=== PATIENT | male | born 1960 | race Asian ===

== ENCOUNTER 2017-04-30 07:05 | Emergency (ER) | payer OTHER ==
[~2017-04-30] VITALS: Ht 175.3 cm; Wt 85.0 kg
[2017-04-30 07:15] VITALS: Ht 175.3 cm; Wt 85.0 kg
[2017-04-30] MEDS ORDERED: ALBUTEROL 0.5% (NEB) 2.5 MG/0.5 ML AMP INH STA ×2 (07:32→09:23)
[2017-04-30] MEDS ORDERED: IPRATROPIUM (NEB) 0.5 MG/2.5 ML AMP NEB STA ×2 (07:32→09:23)
[2017-04-30] MEDS ORDERED: METHYLPREDNISOLONE 125 MG INJ IV ONE (08:00)
--- NOTE | 2017-04-30 08:16 | ERD ---
ER Documentation Chief Complaint Date/Time DATE: 04/30/17 TIME: 08:15 Chief Complaint SOB X 1 WEEK HPI 57-year-old male with history of asthma presents with intermittent shortness of breath for the past week, worsen after yesterday. He reports wheezing, and has been using albuterol, Dulera, Combivent and Spiriva. He is a long-term smoker and he states he quit a few years ago. He reports there is some chest tightness associated feels like his usual asthma symptoms. ROS All systems reviewed and are negative except as per history of present illness. Medications Home Meds Active Scripts Prednisone* (Prednisone*) 20 Mg Tab, 40 MG PO DAILY for 4 Days, TAB Prov:TONY BLACKWELL PA-C 04/30/17 Albuterol Sulfate* (Proair HFA*) 8.5 Gm Hfa.aer.ad, 2 PUFF INH Q4, #1 INHALER Prov:TONY BLACKWELL PA-C 04/30/17 Tiotropium [place]* (Spiriva*) 18 Mcg Cap.w.dev, 1 CAP INHALATION DAILY, #30 CAP Prov:TONY BLACKWELL PA-C 04/30/17 Mometasone-Formoterol (Dulera) 200-5 Mcg/Inh - 13 Gm Hfa.aer.ad, 4 PUFFS INHALATION BID, #1 INHALER Prov:TONY BLACKWELL PA-C 04/30/17 PMhx/Soc History of Surgery: Yes (left arm tumor removal) Hx Respiratory Disorders: Yes (asthma) Hx Alcohol Use: No Hx Substance Use: No Hx Tobacco Use: Yes Smoking Status: Former smoker Physical Exam Vitals Vital Signs Date Time Temp Pulse Resp B/P Pulse Ox O2 Delivery O2 Flow Rate FiO2 04/30/17 09:28 87 19 96 21 04/30/17 07:52 82 19 96 21 04/30/17 07:15 97.9 85 20 154/82 97 Physical Exam General: Well-developed, well-nourished. The patient appears in no acute distress. HEENT: Head is normocephalic, atraumatic. No scleral icterus. Oropharynx is clear Neck: Supple. Nontender. Lungs: Wheezing bilaterally, speaking in full sentences, nonlabored Heart: Regular rate and rhythm. S1 and S2 are normal. No murmurs, gallops, or rubs. Abdomen: Soft, nontender, nondistended. Bowel sounds are normoactive. Extremities: No clubbing or cyanosis. Normal pulses. Moving extremities x 4. No weakness. Neurologic: Alert and oriented 3. No focal deficits. Skin: Normal turgor. No rash or lesions. Results 24 hrs Current Medications Medications (Trade) Dose Ordered Sig/Dylan Route PRN Reason Start Time Stop Time Status Last Admin Dose Admin Ipratropium [place] (Atrovent 0.02% (Neb)) 0.5 mg ONCE STAT NEB 04/30/17 07:32 04/30/17 07:35 DC 04/30/17 07:50 Albuterol (Proventil 0.5% (Neb)) 10 mg ONCE STAT INH 04/30/17 07:32 04/30/17 07:35 DC 04/30/17 07:50 Methylprednisolone Sodium Succinate (Solu-Medrol) 125 mg ONCE ONCE IV 04/30/17 08:00 04/30/17 08:01 DC 04/30/17 08:01 Ipratropium [place] (Atrovent 0.02% (Neb)) 0.5 mg ONCE STAT NEB 04/30/17 09:23 04/30/17 09:25 DC 04/30/17 09:26 Albuterol (Proventil 0.5% (Neb)) 7.5 mg ONCE STAT INH 04/30/17 09:23 04/30/17 09:25 DC 04/30/17 09:26 Procedures/MDM ED course: 12-lead EKG(interpreted by supervising physician): Reviewed by Dr. Abdi Rate/Rhythm: Normal Sinus Rhythm, rate of 78 QRS, ST, T-waves: No changes consistent w/ acute ischemia, no intervals, no dysrhythmias, no ectopy Impression: No evidence of ischemia or arrhythmia Treatment: He was given albuterol 10 mg continuous breathing treatment with Atrovent 1 mg. He was given Solu-Medrol 125 mg IV. Re auscultation shows improved wheezing however persistent wheezing some on the left side greater than the right. He was given an additional albuterol 7.5 mg, Atrovent 0.5 mg continuous neb breathing treatment. Medical decision making: This 57-year-old male comes in with an asthma exacerbation, patient's symptoms are mild to moderate usually, and worse over the last week. He takes Spiriva, Dulera as well as Combivent and uses albuterol occasionally. He initially was seems with some respiratory distress and improved with a breathing treatment. He was given a second breathing treatment here given that he still felt like he had "tightness" pointing to his neck. Suspicion for acute coronary syndrome, cardiac ischemia, dissection is low. He reports that his symptoms are related to asthma and feels similar to his asthma symptoms from previous occasions. He was given [id number] arrangement in the ER today and feels much better at this time. He has been observed in the emergency department, this has had significant improvement and does not warrant further monitoring or hospitalization is stable for outpatient management. The case was reviewed and discussed with Dr. Abdi who agrees with the plan of care including labs, treatment, and advanced imaging as appropriate. Patient's blood pressure was elevated (>120/80) but appears stable without evidence of hypertension emergency or urgency. The patient was counseled about the risks of hypertension and urged to pursue outpatient monitoring and therapy within a week with their primary care physician. Departure Diagnosis: Primary Impression: Asthma exacerbation Condition: TONY Tomlinson PA-C Apr 30, 2017 08:16
--- NOTE | 2017-04-30 08:34 | RADRPT ---
PROCEDURE: XR Chest. CLINICAL INDICATION: Shortness of breath. Cough. TECHNIQUE: Single frontal chest x-ray. COMPARISON: None. FINDINGS: The lungs are clear of acute infiltrates, edema, effusions, or masses.. The cardiomediastinal silho uette is unremarkable. The osseous structures are intact. IMPRESSION: No acute cardiopulmonary disease. RPTAT: EE .Jose J Barone MD, Date Time Electronically viewed and signed by .Jose J Barone MD, on 04/30/2017 08:34 .L/
[2017-04-30] MEDS ORDERED: PRED20TA PO (10:57)
[2017-04-30] MEDS ORDERED: TIOT18CA INHALATION (10:57)
[2017-04-30] MEDS ORDERED: ALBU8.5H3 INH (10:57)
[2017-04-30] MEDS ORDERED: MOME13HF INHALATION (10:57)
[2017-04-30 11:21] VITALS: BP 146/74; PULSE 76; RESP 18
== END 2017-04-30 11:25 | disposition home or self-care (01) ==
LOC: FTE 07:05
DX: J45.901 Unspecified asthma with (acute) exacerbation (principal); Z87.891 Personal history of nicotine dependence
CPT/HCPCS: 71010; 94644; 94645; 96374; J2930; Z7502; Z7610